=== PATIENT | female | born 2000 | race Caucasian/White ===

== ENCOUNTER 2019-01-02 00:24 | Emergency (ER) | payer SELFPAY ==
--- NOTE | 2019-01-02 00:50 | Emergency Department Record ---
History of Present Illness - General Chief complaint: Pain Stated complaint: HIP PAIN Time Seen by Provider: 01/02/19 00:43 Source: Patient Mode of Arrival: Ambulatory Limitations: No limitations - History of Present Illness Initial comments: 18 yo female presents to ED for evaluation of bilateral hip pain "for years", reports pain has been worse in the last 1 week. Patient denies specific injury , denies fevers, chills, or redness. Patient reports "I need new hips". Patient reports that she has never had radiographs performed of her hips, reports that she has never seen an orthopedist for her pain symptoms. Patient reports taking Ibuprofen, Tylenol, Ice, and hot baths that have not improved her pain symptoms. MD Complaint: Joint pain Onset/Timin -: Days(s) Location: Right, Other History of Same: Yes Radiation: None Severity scale (1-10): 6 Consistency: Constant Improves with: Nothing Worsens with: Nothing Associated Symptoms: Denies other symptoms - Related Data Previous Rx's Medication Instructions Recorded Naproxen [Naprosyn] 500 mg PO Q12H #30 tab. 01/02/19 Travel Screening - Travel/Exposure Within Last 30 Days Have you traveled within the last 30 days?: No - Travel/Exposure Within Last Year Have you traveled outside the [place] in the last year?: No - Additonal Travel Details Have you been exposed to anyone with a communicable illness?: No - Travel Symptoms Symptom Screening: None Review of Systems Constitutional: Denies: Chills, Fever, Malaise, Night sweats Eyes: Denies: Eye discharge, Eye pain ENT: Denies: Congestion, Ear pain, Epistaxis Respiratory: Denies: Cough, Dyspnea Cardiovascular: Denies: Chest pain, Dyspnea on exertion Endocrine: Denies: Fatigue, Heat or cold intolerance Gastrointestinal: Denies: Abdominal pain, Nausea, Vomiting Genitourinary: Denies: Incontinence, Retention Musculoskeletal: Reports: Arthralgia. Denies: Back pain, Gout, Joint swelling Skin: Denies: Bruising, Change in color Neurological: Denies: Abnormal gait, Confusion, Headache, Seizure Psychiatric: Denies: Anxiety Hematological/Lymphatic: Denies: Anemia, Blood Clots Past Medical History - SOCIAL HISTORY Smoking Status: Current every day smoker Alcohol Use: None Drug Use: None - RESPIRATORY Hx Respiratory Disorders: No - CARDIOVASCULAR Hx Cardio Disorders: No - NEURO Hx Neuro Disorders: No - GI Hx GI Disorders: No - Hx Genitourinary Disorders: No - ENDOCRINE Hx Endocrine Disorders: No - MUSCULOSKELETAL Hx Musculoskeletal Disorders: Yes Comment:: right hip pain for years - PSYCH Hx Psych Problems: No - HEMATOLOGY/ONCOLOGY Hx Hematology/Oncology Disorders: No Family Medical History Any Significant Family History?: No Physical Exam - General General Appearance: Alert, Oriented x3, Cooperative, No acute distress, Other ( Smiling, ambulating with steady gait on examination. Patient is on her mobile phone on examination, pain appears well controlled at her baseline based on my assessment.) Limitations: No limitations - Head Head exam: Atraumatic, Normocephalic, Normal inspection Head exam detail: negative: Abrasion, Contusion, Brand's sign, General tenderness, Hematoma, Laceration - Eye Eye exam: Normal appearance. negative: Conjunctival injection, Periorbital swelling, Periorbital tenderness, Scleral icterus - ENT Ear exam: negative: Auricular hematoma, Auricular trauma Nasal Exam: negative: Active bleeding, Discharge, Dried blood, Foreign body Mouth exam: negative: Drooling, Laceration, Muffled voice, Tongue elevation - Neck Neck exam: Normal inspection. negative: Meningismus, Tenderness - Respiratory Respiratory exam: Normal lung sounds bilaterally. negative: Rales, Respiratory distress, Rhonchi, Stridor - Cardiovascular Cardiovascular Exam: Regular rate, Normal rhythm, Normal heart sounds - GI/Abdominal GI/Abdominal exam: Soft. negative: Rebound, Rigid, Tenderness - Rectal Rectal exam: Deferred - exam: Deferred - Extremities Extremities exam: Normal inspection. negative: Pedal edema, Tenderness - Back Back exam: Denies: CVA tenderness (R), CVA tenderness (L) - Neurological Neurological exam: Alert, Normal gait, Oriented X3 - Psychiatric Psychiatric exam: Normal affect, Normal mood - Skin Skin exam: Normal color. negative: Abrasion Type of lesion: negative: abrasion Course Vital Signs 01/02/19 00:25 Temperature 97.9 F Pulse Rate 100 H Respiratory 20 Rate Blood Pressure 139/75 Pulse Ox 98 - Reevaluation(s) Reevaluation #1: 01/02/19 01:03 Right Hip: No acute process of the hip/pelvis on examination. Patient ambulated to and from radiology with steady gait, no pain noted on examination. No evidence for septic joint on examination. Patient appears stable for discharge with Naprosyn as needed for her pain symptoms with instructions to follow-up and establish with a PCP for further evaluation. Disposition Disposition: Discharge Clinical Impression: Chronic hip pain Qualifiers: Laterality: bilateral Qualified Code(s): M25.551 - Pain in right hip Disposition: Home, Self-Care Condition: (2) Stable Instructions: Arthralgia (ED) Additional Instructions: Return to ED if your symptoms worsen or if you have any concerns. Naprosyn as directed. Follow-up with a primary care provider in 3-5 days as directed. Prescriptions: Naproxen [Naprosyn] 500 mg PO Q12H #30 tab.dr Forms: Patient Portal Access Time of Disposition: 01:06 Quality - Quality Measures Quality Measures: N/A - Blood Pressure Screening Does Patient Have Any of the Following: No Blood Pressure Classification: Pre-Hypertensive BP Reading Systolic Measurement: 118 Diastolic Measurement: 82 Screening for High Blood Pressure: < Pre-Hypertensive BP, F/U Documented > [ [id number]] Pre-Hypertensive Follow-up Interventions: Referral to alternative/primary care provider.
--- NOTE | 2019-01-04 14:49 | RADIOLOGY REPORT ---
EXAM: RIGHT HIP WITH PELVIS HISTORY: RIGHT HIP PAIN WHICH HAS INCREASED OVER THE PAST ONE TO TWO WEEKS. NO KNOWN INJURY. TECHNIQUE: An AP view of the pelvis and AP and lateral views of the right hip were obtained. Comparison: None. FINDINGS: The hips are symmetric bilaterally. The joint spaces are preserved. There is no acute fracture, dislocation, or significant degenerative change. The bony pelvis is unremarkable. IMPRESSION: NEGATIVE RIGHT HIP AND PELVIS. JOB NUMBER: [id number] [facility] [place]
== END 2019-01-02 01:14 | disposition home or self-care (01) ==
LOC: ER 00:24
DX: M25.551 Pain in right hip (principal)
CPT/HCPCS: 99283